=== PATIENT | male | born 1945 | race African-American/Black ===

== ENCOUNTER → 2016-12-26 | Outpatient (CLI) | payer MEDICARE, BC ==
--- NOTE | 2016-12-26 15:48 | RAD ---
Radionuclide bone scan, 12/26/2016: History: Prostate cancer, yearly checkup Whole-body imaging was performed following IV injection of 25 mCi of technetium 99m MDP. No previous studies are available at this time for comparison purposes. The following findings are delineated: 1. There is moderately increased activity at the left hip joint as well as mildly increased activity at the right hip joint. The findings are likely on an arthritic basis. Correlation with radiographic findings is suggested. 2. Moderately increased activity is present medially at both knees, right greater than left, as well as at both sternoclavicular and acromioclavicular levels. The findings are compatible with arthritis. 3. Mildly increased activity at the left first MTP level and at the right hindfoot level is likely arthritic in nature. 4. A small focus of increased activity is seen in the mid to upper cervical region on the posterior image. This is a nonspecific finding, but likely on an arthritic basis. Correlation with radiographic findings may be helpful. 5. Activity of the radionuclide about the skeleton major joints is otherwise symmetric. IMPRESSION: Scattered abnormalities as described above are most likely arthritic in nature. There is no convincing evidence of osseous metastatic disease.
== END | disposition home or self-care (01) ==
LOC: NM 09:42
PROVIDERS: ATTEND Urology
DX: C61 Malignant neoplasm of prostate (principal); I10 Essential (primary) hypertension
CPT/HCPCS: 78306; 96374; A9503

== ENCOUNTER → 2018-07-23 | Outpatient (CLI) | payer MEDICARE ==
[2018-07-23 14:36] LABS: ALBUMIN 3.7 g/dL (3.4-5.0); ALBUMIN/GLOBULIN RATIO 0.8 (1.0-1.7); CALCIUM 9.7 mg/dL (8.5-10.1); GFR 39.7; POTASSIUM 4.9 mmol/L (3.5-5.1); TOTAL BILIRUBIN 0.6 mg/dL (0.2-1.0); TOTAL PROTEIN 8.1 g/dL (6.4-8.2)
== END | disposition home or self-care (01) ==
LOC: LAB 13:25
DX: C61 Malignant neoplasm of prostate (principal)
CPT/HCPCS: 36415; 80053

== ENCOUNTER 2019-05-25 19:36 | Inpatient (IN) | payer MEDICARE ==
[~2019-05-25] VITALS: Ht 170.2 cm; Wt 72.4 kg
[2019-05-25 19:00] VITALS: BP 123/73
[2019-05-25 21:38] LABS: BASO % 0 % (0-3); EOS # 0.1 x10^3/uL (0.0-0.7); EOS % 1 % (0-3); HEMATOCRIT 20.9 % (39.0-53.0); LYMPH # 1.8 x10^3/uL (1.0-4.8); LYMPH % 20 % (24-48); MEAN CORPUSCULAR HEMOGLOBIN 28 pg (25-35); MEAN CORPUSCULAR HGB CONC 33 g/dL (31-37); MEAN CORPUSCULAR VOLUME 85 fL (79-100); MONO % 11 % (0-9); NEUT # 6.1 x10^3uL (1.8-7.7); NEUT % 68 % (31-73); PLATELET COUNT 334 x10^3/uL (140-400); RED BLOOD COUNT 2.47 x10^6/uL (4.30-5.70); RED CELL DISTRIBUTION WIDTH 17.1 % (11.5-14.5); WHITE BLOOD COUNT 9.1 x10^3/uL (4.0-11.0)
[2019-05-25] MEDS: IV NORMAL SALINE 1,000ML 1,000 ML IV SCH (21:38)
[2019-05-25 21:47] LABS: ALBUMIN 1.9 g/dL (3.4-5.0); ALBUMIN/GLOBULIN RATIO 0.3 (1.0-1.7); CALCIUM 8.4 mg/dL (8.5-10.1); CREATININE 1.2 mg/dL (0.7-1.3); GFR 71.4; POTASSIUM 4.3 mmol/L (3.5-5.1); TOTAL BILIRUBIN 0.1 mg/dL (0.2-1.0); TOTAL PROTEIN 7.4 g/dL (6.4-8.2)
[2019-05-25 22:07] LABS: HEMOGLOBIN 6.9 g/dL (13.0-17.5)
[2019-05-25 23:04] LABS: BACTERIA,URINE MOD /HPF (0-FEW); BILIRUBIN,URINE NEG (NEG); CLARITY,URINE CLOUDY; COLOR,URINE AMBER; GLUCOSE,URINE NEG (NEG); NITRITE,URINE POS (NEG); RBC,URINE TNTC /HPF (0-2); SQUAMOUS EPITHELIAL CELL,UR OCC /LPF; UROBILINOGEN,URINE 0.2 mg/dL (0.2 mg/dL); WBC,URINE TNTC /HPF (0-4)
[2019-05-26] VITALS (11 sets, daily range): BP systolic 112–148; BP diastolic 60–80
[2019-05-26] MEDS ORDERED: ACETAMINOPHEN 325 MG TABLET PO ONE (00:26)
[2019-05-26] MEDS ORDERED: ACETAMINOPHEN 325 MG TABLET PO PRN ×2 (00:30→00:45)
[2019-05-26] MEDS ORDERED: ZINC220C5 PO (05:12)
[2019-05-26] MEDS ORDERED: ACET500T68 PO (05:12)
[2019-05-26] MEDS ORDERED: POLY17PO5 PO (05:12)
[2019-05-26] MEDS ORDERED: BISM262O17 PO (05:12)
[2019-05-26] MEDS ORDERED: OMEP20CA10 PO (05:12)
[2019-05-26] MEDS ORDERED: OXYC5TAB4 PO (05:12)
[2019-05-26] MEDS ORDERED: LATA2.5D3 EACHEYE (05:12)
[2019-05-26] MEDS ORDERED: PHEN1SUP75 RC (05:22)
[2019-05-26] MEDS ORDERED: MULT1TAB52 PO (05:22)
[2019-05-26] MEDS ORDERED: 0.92DISP2 IR (05:22)
[2019-05-26] MEDS: IV NORMAL SALINE 1,000ML 1,000 ML IV SCH ×3 (05:58→20:46)
[2019-05-26 06:20] LABS: BASO # 0.1 x10^3/uL (0.0-0.2); BASO % 1 % (0-3); EOS # 0.2 x10^3/uL (0.0-0.7); EOS % 2 % (0-3); HEMATOCRIT 21.9 % (39.0-53.0); HEMOGLOBIN 7.2 g/dL (13.0-17.5); LYMPH # 1.6 x10^3/uL (1.0-4.8); LYMPH % 20 % (24-48); MEAN CORPUSCULAR HEMOGLOBIN 28 pg (25-35); MEAN CORPUSCULAR HGB CONC 33 g/dL (31-37); MEAN CORPUSCULAR VOLUME 86 fL (79-100); MONO # 1.1 x10^3/uL (0.0-1.1); MONO % 14 % (0-9); NEUT # 4.9 x10^3uL (1.8-7.7); NEUT % 63 % (31-73); PLATELET COUNT 314 x10^3/uL (140-400); RED BLOOD COUNT 2.56 x10^6/uL (4.30-5.70); RED CELL DISTRIBUTION WIDTH 17.2 % (11.5-14.5); WHITE BLOOD COUNT 7.8 x10^3/uL (4.0-11.0)
[2019-05-26 06:24] LABS: ALBUMIN 1.7 g/dL (3.4-5.0); ALBUMIN/GLOBULIN RATIO 0.3 (1.0-1.7); CALCIUM 8.2 mg/dL (8.5-10.1); CREATININE 1.2 mg/dL (0.7-1.3); GFR 71.4; POTASSIUM 4.2 mmol/L (3.5-5.1); TOTAL BILIRUBIN 0.1 mg/dL (0.2-1.0); TOTAL PROTEIN 6.9 g/dL (6.4-8.2)
[2019-05-26] MEDS: 0.9 % SODIUM CHLORIDE 10 ML DISP.SYRIN. INT CAT SCH ×2 (10:45→20:47)
[2019-05-26] MEDS: MULTIVITAMIN with MINERAL TABLET. PO SCH (11:00)
[2019-05-26] MEDS: PANTOPRAZOLE 40 MG TABLET. PO SCH (11:57)
[2019-05-26] MEDS ORDERED: ACETAMINOPHEN 500 MG TABLET PO SCH (12:00)
[2019-05-26] MEDS ORDERED: POLYETHYLENE GLYCOL 3350 17 GM PACKET. PO SCH (13:00)
[2019-05-26] MEDS ORDERED: LIDO76.53 TP (14:49)
[2019-05-26] MEDS ORDERED: POLYETHYLENE GLYCOL 3350 17 GM PACKET. PO PRN (15:00)
--- NOTE | 2019-05-26 18:41 | HP ---
ADMIT DATE: HISTORY OF PRESENT ILLNESS: The patient is a 73-year-old male patient, resident at [facility], who was admitted directly as his hemoglobin was only 6.3 g/dL. When he arrived here, it transpired that he was febrile and his urinalysis showed that he was positive for nitrite and leukocyte esterase and he has too numerous to count wbc's and therefore, we did send urine and blood for culture and sensitivity and start him on IV Rocephin. We did also type and cross; however, we could not transfuse him the blood initially because he was febrile and was admitted for inpatient treatment, to continue with IV antibiotic and to transfuse him and monitor his H and H. PAST MEDICAL HISTORY: Significant for severe protein-calorie malnutrition, has GI bleeding, chronic constipation, partial small-bowel obstruction, sepsis, pyelonephritis, ureteral obstruction and hydronephrosis, acute kidney injury, visual impairment. Has also prostate cancer, left hip pain, hot flashes, hypertension, osteoarthritis, syncope and hard of hearing. PAST SURGICAL HISTORY: Significant for the sigmoidoscopy with decompression and biopsy, exploratory laparotomy with loop ileostomy. He underwent bilateral nephrostomy tube placement for bilateral hydronephrosis. He has also had an inferior vena cava filter placed after he was found to have bilateral deep vein thrombosis as he was not a candidate for anticoagulation. ALLERGIES: He is allergic to ZOSYN. MEDICATIONS: He is on oxycodone 5 mg every 4 hours as needed, acetaminophen 500 mg every 4 hours. He has normal saline flushes to both nephrostomy tube twice a day, zinc sulfate ____ mg daily; latanoprost 1 drop to both eyes at bedtime. He is on bismuth subsalicylate 262 mg p.o. q. 6 hourly, polyethylene glycol 17 grams 4 times a day as needed, omeprazole 20 mg once a day, lidocaine/menthol for Icy Hot 4% cream applied topically for pain as needed. He is on phenylephrine/Macon butter suppositories rectally daily and multivitamin 1000 once a day. FAMILY HISTORY: Positive for rheumatoid arthritis, bronchial asthma, and malignant hyperthermia in his mother. SOCIAL HISTORY: He is , lives with his . He has 1 daughter. He never smoked, does not drink alcohol or use any recreational drugs. He is retired from [employer]. REVIEW OF SYSTEMS: The patient denied any blurring of vision, cataract, glaucoma or macular degeneration. Denied any earache, tinnitus or sensorineural deafness. Denied any nosebleeds, stuffy nose or postnasal drip. Denied any sore throat, sore tongue, toothache, hoarseness of voice or difficulty swallowing. Denied any nausea, vomiting, diarrhea or constipation. Denied any hematemesis, melena or hematochezia. Denied any dysuria, frequency, but did have hematuria as he continued to make some urine and urinate through his natural urethra. Denied any chest pain, shortness of breath, orthopnea or paroxysmal nocturnal dyspnea. Denied any cough, phlegm or hemoptysis. Denied any chills, rigors or fever. PHYSICAL EXAMINATION: GENERAL: On arrival to the hospital, he was extremely pale, but no jaundice, cyanosis or thyromegaly. No jugular venous distention. No lower limb edema. VITAL SIGNS: Her heart rate was 102, blood pressure was 123/73, temperature was 99.1, respiratory rate was 18 and oxygen saturation was 98%. HEAD, EYES, EARS, NOSE AND THROAT: Showed normocephalic, atraumatic. NECK: Supple. HEART: Showed normal first and second heart sounds. No gallop, rub or murmur. CHEST: Clear to auscultation. No crepitation or rhonchi. ABDOMEN: Distended, soft, nontender with a loop ileostomy in the left lower quadrant. There is no guarding or rigidity. No organomegaly. All hernial orifices intact. Bowel sounds normal. He has bilateral percutaneous nephrostomy tube. NEUROLOGIC: He is awake, alert, responding appropriately. All cranial nerves intact. He moves extremities without difficulty. He ambulates with a walker. LABORATORY DATA: On arrival showed a white cell count of 9,100, hemoglobin ____, hematocrit 20.9, MCV was 85 and platelet count 334,000 with normal manual differential. His chemistry showed serum sodium 133, potassium 4.3, chloride 99, bicarbonate 27, anion gap of 7, BUN 12, creatinine 1.2, estimated GFR was 71 mL per minute. His glucose 106, calcium was 8.4. Total bilirubin, AST, ALT, alkaline phosphatase were normal. Total protein was 7.4, albumin was 1.9. Urinalysis showed the urine was cloudy with a pH of 6, specific gravity of 1.015, there was large amount of protein. The urine was negative for glucose, ketones and large amount of blood; positive for nitrite, large amount of leukocyte esterase, too numerous to count rbc's, too numerous to count wbc's, moderate amount of bacteria. His nasal screen for MRSA by PCR was positive. ASSESSMENT AND PLAN: In summary, this is a 73-year-old who was admitted with acute blood loss anemia, most likely in the form of hematuria. He has also history of GI bleeding, but there is no documented history of hematemesis, melena or hematochezia. We will type and cross and transfuse him 1 unit. We will send urine and blood for culture and sensitivity, start him on IV ceftriaxone, continue with all his other medications. We will monitor his H and H and transfuse him as needed, continue with IV antibiotic and adjust the antibiotics according to the result of the urine and blood culture and sensitivity. GUALBERTO MCGRATH MD DR: NICKI/vanessa JOB#: [id number] / [id number]
[2019-05-26] MEDS: LACTOBACILLUS RHAMNOSUS GG 1 CAPSULE. PO SCH (20:47)
[2019-05-26] MEDS: LATANOPROST 0.005% OPHTH SOLUTION 2.5ML BOTTLE. OU SCH (20:49)
[2019-05-26] MEDS: ACETAMINOPHEN 500 MG TABLET PO PRN (20:49)
[2019-05-27] VITALS (7 sets, daily range): BP systolic 112–141; BP diastolic 69–83
[2019-05-27] MEDS: IV NORMAL SALINE 1,000ML 1,000 ML IV SCH ×2 (04:26→12:15)
--- NOTE | 2019-05-27 05:16 | PN ---
DATE: SUBJECTIVE: The patient is resting flat comfortably in bed, in no apparent distress. He is awake, alert. Denied any complaint. He did receive 1 unit of packed RBCs and he is afebrile this morning. PHYSICAL EXAMINATION: GENERAL: When I saw him, he looked pale; no jaundice, cyanosis or thyromegaly. No jugular venous distention. No limb edema. VITAL SIGNS: His heart rate was 84, blood pressure was 123/71, temperature was 98.9, respiratory rate was 17 and oxygen saturation was 97%. HEAD, EYES, EARS, NOSE AND THROAT: Showed normocephalic, atraumatic. NECK: Supple. HEART: Showed normal first and second heart sounds with no gallop or murmur. CHEST: Clear to auscultation. No crepitation or rhonchi. ABDOMEN: Distended, soft, nontender with an ileostomy in the left lower quadrant. There is no guarding, rigidity or organomegaly. All hernial orifices were intact. Bowel sounds normal. He has bilateral percutaneous nephrostomy tubes. NEUROLOGIC: He is awake, alert, responding appropriately. All cranial nerves intact. He moves extremities without difficulty. He ambulates with a walker. His intake was 1200, output was 975. LABORATORY DATA: His lab work this morning showed that his white cell count was 7800, hemoglobin 7.2, hematocrit 21.9, MCV 86 and platelet count 314,000 with normal manual differential. His chemistry showed a serum sodium 136, potassium 4.2, chloride 103, bicarbonate 26, anion gap of 7, BUN 9, creatinine 1.2, estimated GFR was 71 mL per minute. His glucose was 94, calcium was 8.2. Total bilirubin, AST, ALT were normal. Alkaline phosphatase slightly elevated. Total protein was 6.9, albumin was 1.7. ASSESSMENT: 1. Acute blood loss anemia, most likely due to hematuria for which he received 1 unit of packed RBCs. 2. Urinary tract infection for which he is on IV Rocephin. He has prostate cancer with bilateral hydronephrosis requiring bilateral percutaneous nephrostomy tube placement. 3. He has multiple other medical problems including chronic constipation, hypertension, osteoarthritis and sensorineural deafness. PLAN: To continue to monitor his H and H and transfuse him as needed. Continue with IV antibiotic. Continue with physical and occupational therapy. Once we have the result of the urine culture and sensitivity, his antibiotics can be switched to oral route and he can be transferred back to [facility] to continue with the process of rehabilitation. GUALBERTO MCGRATH MD DR: NICKI/vanessa JOB#: [id number] / [id number]
[2019-05-27 06:08] LABS: HEMATOCRIT 23.6 % (39.0-53.0); HEMOGLOBIN 7.8 g/dL (13.0-17.5); RED BLOOD COUNT 2.74 x10^6/uL (4.30-5.70); RED CELL DISTRIBUTION WIDTH 16.8 % (11.5-14.5); WHITE BLOOD COUNT 6.9 x10^3/uL (4.0-11.0)
[2019-05-27 06:21] LABS: ALBUMIN 1.6 g/dL (3.4-5.0); ALBUMIN/GLOBULIN RATIO 0.4 (1.0-1.7); CALCIUM 7.7 mg/dL (8.5-10.1); CREATININE 1.1 mg/dL (0.7-1.3); TOTAL BILIRUBIN 0.1 mg/dL (0.2-1.0)
[2019-05-27] MEDS: MULTIVITAMIN with MINERAL TABLET. PO SCH (08:11)
[2019-05-27] MEDS: LACTOBACILLUS RHAMNOSUS GG 1 CAPSULE. PO SCH ×2 (08:11→21:01)
[2019-05-27] MEDS: ACETAMINOPHEN 500 MG TABLET PO PRN ×2 (08:11→21:01)
[2019-05-27] MEDS: ZINC SULFATE 220 MG CAPSULE. PO SCH (08:11)
[2019-05-27] MEDS: PANTOPRAZOLE 40 MG TABLET. PO SCH (08:11)
[2019-05-27] MEDS: 0.9 % SODIUM CHLORIDE 10 ML DISP.SYRIN. INT CAT SCH ×2 (08:12→21:02)
[2019-05-27] MEDS: LATANOPROST 0.005% OPHTH SOLUTION 2.5ML BOTTLE. OU SCH (21:02)
[2019-05-27] MEDS: oxyCODONE IR 5 MG TABLET PO PRN (23:01)
--- NOTE | 2019-05-28 00:39 | PN ---
DATE: 05/27/2019 SUBJECTIVE: The patient is here for blood transfusion, recent surgeries, ostomy tubes and a colostomy. No new complaints. He is comfortable. He denied any pain, shortness of breath or nausea. OBJECTIVE FINDINGS: VITAL SIGNS: The patient's blood pressure today is 117/73, pulse is 83 and regular, respirations are unlabored. He is afebrile. He has adequate saturation on room air. HEENT: Head is without trauma. Pupils are reactive. Sclerae are nonicteric. The oropharynx is clear. NECK: Supple, no bruits. LUNGS: Otherwise clear. CARDIOVASCULAR: Showed regular heart tones. No obvious gallops. Peripheral pulses palpable and full. ABDOMEN: Soft, scaphoid, nontender. Midline incision is well healed. There is a functioning ostomy in the left lower quadrant. The stoma is pink and viable. There is no guarding or rebound tenderness. Bilateral nephrostomy tubes with clear urine emanating from both flanks. LABORATORY STUDY: Hemoglobin dropped to 7.8 g/dL with a white count of 6900. ASSESSMENT: 1. Acute blood loss anemia, replace. 2. Urinary tract infection due to chronically indwelling catheter, on Rocephin. 3. Obstructive uropathy with bilateral percutaneous nephrostomy tube placement. 4. Recent colostomy formation. 5. Anemia due to blood loss. PLAN: 1. Monitor blood counts. 2. Diet as tolerated. 3. Continue Rocephin as ordered. 4. Discontinue IV fluids. 5. Tentative plans for discharge back to assisted living facility in the morning. JASON ORTIZ MD DR: TRENT/vanessa JOB#: [id number] / [id number]
[2019-05-28 06:40] VITALS: BP 142/85
[2019-05-28] MEDS: PANTOPRAZOLE 40 MG TABLET. PO SCH (07:29)
[2019-05-28] MEDS: ZINC SULFATE 220 MG CAPSULE. PO SCH (08:45)
[2019-05-28] MEDS: LACTOBACILLUS RHAMNOSUS GG 1 CAPSULE. PO SCH ×2 (08:45→20:01)
[2019-05-28] MEDS: MULTIVITAMIN with MINERAL TABLET. PO SCH (08:45)
[2019-05-28] MEDS: 0.9 % SODIUM CHLORIDE 10 ML DISP.SYRIN. INT CAT SCH ×2 (08:45→20:02)
[2019-05-28 10:36] VITALS: BP 143/84
[2019-05-28 15:22] VITALS: BP 130/73
[2019-05-28 19:15] VITALS: BP 135/84
[2019-05-28] MEDS: oxyCODONE IR 5 MG TABLET PO PRN (19:45)
[2019-05-28] MEDS: LATANOPROST 0.005% OPHTH SOLUTION 2.5ML BOTTLE. OU SCH (20:01)
--- NOTE | 2019-05-28 23:24 | DS ---
DATE OF DISCHARGE: 05/28/2019 ATTENDING PHYSICIAN: Dr. Benoit. FINAL DISCHARGE DIAGNOSES: 1. Symptomatic anemia, transfuse. 2. Protein-calorie malnutrition. 3. Hematuria. 4. Small-bowel obstruction. 5. Pyelonephritis. 6. Ureteral obstruction with hydronephrosis. 7. Bilateral percutaneous nephrostomy tubes. 8. Prostate cancer. 9. Essential hypertension. 10. Recent exploratory laparotomy and loop ileostomy. 11. History of bilateral deep vein thrombosis with placement of an inferior vena cava filter. HISTORY AND PHYSICAL: This pleasant 73-year-old gentleman is a resident of [facility], admitted with symptomatic anemia with hemoglobin 6.3 g. He also had a low-grade fever. He was initially treated for UTI. PHYSICAL EXAMINATION: Please see the dictated note. PERTINENT LABORATORY AND X-RAY STUDIES: Blood cultures were negative at 48 hours. Urine cultures did not grow any significant pathogens. Laboratory studies showed hemoglobin 6.3 g, repeated was up to 7.8 g/dL, white count was 6900. Chemistry showed a creatinine of 1.1 mg/dL, potassium 4.0 mEq. COURSE IN HOSPITAL: The patient was admitted. He was started on empiric antibiotics. Cultures were drawn that were negative. Antibiotics were stopped after 2 days. He did well. He received a couple of units of blood for transfusion, increasing his hemoglobin up to 7.8 g/dL. His ileostomy was working and the nephrostomy tubes were draining adequately. On the third hospital day, his vital signs were quite stable. The lungs were clear. He was afebrile with a blood pressure of 140/80, pulse and respirations were normal. He was eating adequately. His ostomies were functioning. He was discharged then back to his assisted living facility. He will continue his home drops including Tylenol, Pepto-Bismol, Latanoprost eyedrops, Icy Hot, multivitamin, omeprazole, Preparation-H p.r.n., MiraLax and zinc sulfate. His prognosis is guarded. He was discharged then from our hospital in stable condition with explicit instructions and followup care. Total discharge time spent 39 minutes. JASON ORTIZ MD DR: TRENT/vanessa JOB#: [id number] / [id number] GUALBERTO Christine MD
[2019-05-29 06:07] VITALS: BP 126/81
[2019-05-29] MEDS: 0.9 % SODIUM CHLORIDE 10 ML DISP.SYRIN. INT CAT SCH ×2 (09:00→20:57)
[2019-05-29 10:44] VITALS: BP 119/71
[2019-05-29 15:14] VITALS: BP 134/79
[2019-05-29] MEDS: PANTOPRAZOLE 40 MG TABLET. PO SCH (16:18)
[2019-05-29] MEDS: LACTOBACILLUS RHAMNOSUS GG 1 CAPSULE. PO SCH ×2 (16:18→20:56)
[2019-05-29] MEDS: ZINC SULFATE 220 MG CAPSULE. PO SCH (16:18)
[2019-05-29] MEDS: MULTIVITAMIN with MINERAL TABLET. PO SCH (16:18)
[2019-05-29 20:06] VITALS: BP 127/73
[2019-05-29] MEDS: LATANOPROST 0.005% OPHTH SOLUTION 2.5ML BOTTLE. OU SCH (20:56)
[2019-05-29] MEDS: oxyCODONE IR 5 MG TABLET PO PRN (21:17)
[2019-05-29 22:41] VITALS: BP 126/74
[2019-05-30 05:59] VITALS: BP 145/78
[2019-05-30] MEDS: MULTIVITAMIN with MINERAL TABLET. PO SCH (08:54)
[2019-05-30] MEDS: LACTOBACILLUS RHAMNOSUS GG 1 CAPSULE. PO SCH ×2 (08:54→21:18)
[2019-05-30] MEDS: PANTOPRAZOLE 40 MG TABLET. PO SCH (08:54)
[2019-05-30] MEDS: ZINC SULFATE 220 MG CAPSULE. PO SCH (08:54)
[2019-05-30] MEDS: 0.9 % SODIUM CHLORIDE 10 ML DISP.SYRIN. INT CAT SCH ×2 (08:55→21:18)
[2019-05-30 10:30] VITALS: BP 129/77
[2019-05-30] MEDS ORDERED: ATENOLOL 50 MG TABLET ONE (10:39)
[2019-05-30 10:40] VITALS: BP 129/77
[2019-05-30] MEDS ORDERED: ATENOLOL 50 MG TABLET PO ONE (11:00)
[2019-05-30 14:29] VITALS: BP 118/71
[2019-05-30 19:59] VITALS: BP 119/69
[2019-05-30] MEDS: CEFDINIR 300 MG CAPSULE PO SCH (21:18)
[2019-05-30] MEDS: oxyCODONE IR 5 MG TABLET PO PRN (21:21)
[2019-05-30] MEDS: LATANOPROST 0.005% OPHTH SOLUTION 2.5ML BOTTLE. OU SCH (21:21)
--- NOTE | 2019-05-30 22:29 | PN ---
DATE: 05/30/2019 CHIEF COMPLAINT: Weakness. SUBJECTIVE: The patient is a 73-year-old gentleman who was actually discharged from the hospital this past Friday, 48 hours ago, the issues over the long holiday weekend, there were problems with the longterm getting transportation. We have been on the phone for 2 days now and were still in the process of getting them to accept the patient back for care. He was hospitalized here for 2 days for blood transfusion. He has had a recent ostomy along with bilateral nephrostomy tubes. Subjectively, he is doing well without any complaints. He is a bit frustrated too. The reason I am doing this note is because I have been checking on him. We found asymptomatic tachycardia with a heart rate of 148 per minute. It appears to be a sinus tachycardia. OBJECTIVE: VITAL SIGNS: Blood pressure is 129/77, pulse ranges between 130 and 140. It appears to be sinus in nature. LUNGS: Clear. CARDIOVASCULAR: Showed a tachycardic rhythm. No obvious gallops. Peripheral pulses are palpable, but thready. ABDOMEN: Soft. Ostomy tubes are functioning with clear urine drainage. He does not appear Warm or toxic. LABORATORY DATA: Reviewed on , his hemoglobin dropped to 7.8 g/dL with creatinine 1.1 mg/dL. ASSESSMENT: 1. Asymptomatic tachycardia. 2. Anemia of chronic disease, transfused. 3. Obstructive uropathy. 4. Recent ileostomy. PLAN: 1. We are still working on trying to get him back to his nursing care facility. 2. Empiric Tenormin 50 mg p.o. now with monitoring of his heart rate. He may need higher doses later. We will see how he does. He is asymptomatic at this point. JASON ORTIZ MD DR: TRENT/vanessa JOB#: [id number] / [id number]
[2019-05-30 22:51] VITALS: BP 122/67
[2019-05-31 06:23] VITALS: BP 128/74
[2019-05-31] MEDS: CEFDINIR 300 MG CAPSULE PO SCH ×2 (08:56→22:12)
[2019-05-31] MEDS: oxyCODONE IR 5 MG TABLET PO PRN ×2 (08:56→22:12)
[2019-05-31] MEDS: LACTOBACILLUS RHAMNOSUS GG 1 CAPSULE. PO SCH ×2 (08:56→22:12)
[2019-05-31] MEDS: PANTOPRAZOLE 40 MG TABLET. PO SCH (08:56)
[2019-05-31] MEDS: MULTIVITAMIN with MINERAL TABLET. PO SCH (08:56)
[2019-05-31] MEDS: ZINC SULFATE 220 MG CAPSULE. PO SCH (08:57)
[2019-05-31] MEDS: 0.9 % SODIUM CHLORIDE 10 ML DISP.SYRIN. INT CAT SCH ×2 (08:59→22:12)
[2019-05-31 10:51] VITALS: BP 122/68
[2019-05-31 14:52] VITALS: BP 108/62
[2019-05-31 19:37] VITALS: BP 108/58
[2019-05-31] MEDS: LATANOPROST 0.005% OPHTH SOLUTION 2.5ML BOTTLE. OU SCH (21:00)
[2019-06-01 06:00] VITALS: BP 122/76
[2019-06-01] MEDS: PANTOPRAZOLE 40 MG TABLET. PO SCH (09:02)
[2019-06-01 11:19] VITALS: BP 112/69
[2019-06-01 11:44] LABS: HEMATOCRIT 23.2 % (39.0-53.0); HEMOGLOBIN 7.5 g/dL (13.0-17.5); RED BLOOD COUNT 2.66 x10^6/uL (4.30-5.70)
[2019-06-01 11:52] LABS: CALCIUM 8.2 mg/dL (8.5-10.1); CREATININE 1.1 mg/dL (0.7-1.3); POTASSIUM 3.9 mmol/L (3.5-5.1)
[2019-06-01] MEDS: MULTIVITAMIN with MINERAL TABLET. PO SCH (11:57)
[2019-06-01] MEDS: CEFDINIR 300 MG CAPSULE PO SCH ×2 (11:57→20:46)
[2019-06-01] MEDS: LACTOBACILLUS RHAMNOSUS GG 1 CAPSULE. PO SCH ×2 (11:57→20:47)
[2019-06-01] MEDS: ZINC SULFATE 220 MG CAPSULE. PO SCH (11:57)
[2019-06-01] MEDS: 0.9 % SODIUM CHLORIDE 10 ML DISP.SYRIN. INT CAT SCH ×2 (11:58→20:47)
[2019-06-01 15:53] VITALS: BP 125/67
[2019-06-01] MEDS: oxyCODONE IR 5 MG TABLET PO PRN (16:24)
[2019-06-01 19:22] VITALS: BP 111/66
[2019-06-01] MEDS: ACETAMINOPHEN 500 MG TABLET PO PRN (20:46)
[2019-06-01] MEDS: diphenhydrAMINE HCL 25 MG CAPSULE PO PRN (20:46)
[2019-06-01] MEDS: LATANOPROST 0.005% OPHTH SOLUTION 2.5ML BOTTLE. OU SCH (20:47)
--- NOTE | 2019-06-01 22:07 | PN ---
DATE: 06/01/2019 SUBJECTIVE: The patient is resting, slightly propped up in bed, in no apparent respiratory distress. He is awake, alert. On questioning him, he denied any complaint except that he continued to have some blood-tinged urine from his urethra. The urine from bilateral nephrostomy tube is clear. No evidence of blood in it. He denied any other complaints. PHYSICAL EXAMINATION: GENERAL: When I examined him, he looked somewhat pale. No jaundice, cyanosis or thyromegaly. No jugular venous distention. No limb edema. VITAL SIGNS: Her heart rate was 109, blood pressure was 122/76, temperature was 98.6, respiratory rate was 18 and oxygen saturation was 95%. HEAD, EYES, EARS, NOSE AND THROAT: Showed normocephalic, atraumatic. NECK: Supple. HEART: Showed normal first and second heart sounds with no gallop, rub or murmur. CHEST: Clear to auscultation. No crepitation or rhonchi. ABDOMEN: Distended, soft with an ileostomy bag in the left lower quadrant, has bilateral percutaneous nephrostomy tube in place. There is no tenderness. No guarding or rigidity. No organomegaly. All hernial orifice intact. Bowel sounds normal. NEUROLOGIC: He is awake, alert, responding appropriately. All cranial nerves are intact. He moves extremities without difficulty, although he is mostly bedbound, chair bound. He does walk with a walker for short distances. His intake was 1400, output was 1550. LABORATORY DATA: Most recent lab work showed a white cell count of 6900, hemoglobin 7.8, hematocrit 23.6, MCV 86 and platelet count 312,000. His most recent chemistry showed a serum sodium 137, potassium 4, chloride 105, bicarbonate 24, anion gap of 8, BUN 10, creatinine 1.1, estimated GFR was 79 mL per minute. His glucose was 87, calcium was 7.7. Total bilirubin, AST, ALT normal. Alkaline phosphatase slightly elevated. Total protein was 6, albumin was 1.6. His urine culture has grown more than 100,000 colony forming units per mL of Klebsiella pneumoniae susceptible to cephalosporin. His blood cultures showed no growth after 5 days. ASSESSMENT: Anemia of chronic disease, transfused; obstructive uropathy, recent ileostomy for bilateral percutaneous nephrostomy tube. PLAN: My plan is to arrange for him to have a STAT lab work. Meanwhile, continue with cefdinir and all other medications. GUALBERTO MCGRATH MD DR: NICKI/vanessa JOB#: [id number] / [id number]
[2019-06-01 22:46] VITALS: BP 119/71
[2019-06-02 05:38] VITALS: BP 132/80
[2019-06-02] MEDS: LACTOBACILLUS RHAMNOSUS GG 1 CAPSULE. PO SCH ×2 (08:33→20:39)
[2019-06-02] MEDS: PANTOPRAZOLE 40 MG TABLET. PO SCH (08:34)
[2019-06-02] MEDS: CEFDINIR 300 MG CAPSULE PO SCH ×2 (08:34→20:39)
[2019-06-02] MEDS: MULTIVITAMIN with MINERAL TABLET. PO SCH (08:34)
[2019-06-02] MEDS: oxyCODONE IR 5 MG TABLET PO PRN ×2 (08:34→20:39)
[2019-06-02] MEDS: 0.9 % SODIUM CHLORIDE 10 ML DISP.SYRIN. INT CAT SCH ×2 (08:34→20:40)
[2019-06-02] MEDS: ZINC SULFATE 220 MG CAPSULE. PO SCH (08:34)
[2019-06-02 10:51] VITALS: BP 122/73
[2019-06-02 14:48] VITALS: BP 122/73
[2019-06-02 18:35] VITALS: BP 118/74
[2019-06-02] MEDS: LATANOPROST 0.005% OPHTH SOLUTION 2.5ML BOTTLE. OU SCH (20:39)
--- NOTE | 2019-06-03 01:36 | PN ---
DATE: 06/02/2019 SUBJECTIVE: The patient is resting, slightly propped up in bed, in no apparent respiratory distress. Continues to be weak and deconditioned, some pain in his right knee joint. He is unable to walk and still continues to be with marked muscle wasting and weakness. He does some exercises while in the bed. PHYSICAL EXAMINATION: GENERAL: When I examined him this afternoon, he was pale. No jaundice, cyanosis, or thyromegaly, jugular venous distension. No limb edema. VITAL SIGNS: His heart rate was 88, blood pressure was 122/73, temperature was 98.1, respiratory rate 20, and oxygen saturation was 96%. HEAD, EYES, EARS, NOSE AND THROAT: Showed normocephalic, atraumatic. NECK: Supple. HEART: Showed normal first and second heart sounds with no gallop, rub or murmur. CHEST: Clear to auscultation. No crepitation or rhonchi. ABDOMEN: Distended, soft, nontender. No guarding or rigidity. No organomegaly. All hernial orifices intact. Bowel sounds normal. NEUROLOGIC: He is awake, alert, responding appropriately. All cranial nerves are intact. He moves extremities without difficulty. He has marked muscle wasting and weakness. He has bilateral percutaneous nephrostomy tube. His intake over the last 24 hours was 1040, output was 1325. LABORATORY DATA: This morning showed a serum sodium 134, potassium 3.9, chloride 101, bicarbonate 24, anion gap of 8, BUN 10, creatinine 1.1, estimated GFR was 79 mL per minute. Glucose 106, calcium was 8.2. His white cell count was 8000, hemoglobin 7.5, hematocrit 23, MCV 87 and platelet count 292,000. ASSESSMENT: 1. Blood loss anemia, status post transfusion. 2. Obstructive uropathy, status post bilateral percutaneous nephrostomy tube. 3. Urinary tract infection. 4. Prostate cancer with bilateral hydronephrosis requiring bilateral percutaneous nephrostomy tube. 5. Has multiple other medical problems including chronic constipation, hypertension, osteoarthritis, sensorineural deafness. 6. Severe debility and deconditioning with marked muscle wasting and difficulty walking. GUALBERTO MCGRATH MD DR: NICKI/vanessa JOB#: [id number] / [id number]
[2019-06-03] MEDS: diphenhydrAMINE HCL 25 MG CAPSULE PO PRN (04:03)
[2019-06-03 05:56] VITALS: BP 131/80
[2019-06-03] MEDS: PANTOPRAZOLE 40 MG TABLET. PO SCH (07:27)
[2019-06-03] MEDS: 0.9 % SODIUM CHLORIDE 10 ML DISP.SYRIN. INT CAT SCH (08:56)
[2019-06-03] MEDS: CEFDINIR 300 MG CAPSULE PO SCH (09:02)
[2019-06-03] MEDS: MULTIVITAMIN with MINERAL TABLET. PO SCH (09:02)
[2019-06-03] MEDS: ZINC SULFATE 220 MG CAPSULE. PO SCH (09:02)
[2019-06-03] MEDS: LACTOBACILLUS RHAMNOSUS GG 1 CAPSULE. PO SCH (09:02)
[2019-06-03 10:46] VITALS: BP 116/71
[2019-06-03] MEDS ORDERED: ONDANSETRON ODT 4 MG TAB.RAPDIS PO ONE ×2 (13:30→14:00)
--- NOTE | 2019-06-03 20:42 | DS ---
DATE OF DISCHARGE: 06/03/2019 HOSPITAL COURSE: The patient is a 73-year-old male patient who was admitted initially on 05/26/2019 as a direct admission as he was anemic with hemoglobin 6.2 g/dL. He was also found to be febrile and his urinalysis showed that it was positive for nitrite, leukocyte esterase and too numerous to count wbc's and therefore we did send urine for culture and sensitivity, started him on IV Rocephin. He did type and cross and transfuse him 1 unit of blood. He was treated. His H and H remained stable. His urine culture has grown more than 100,000 colony forming units per mL of Klebsiella pneumoniae sensitive to ceftriaxone and he was switched to cefdinir. The patient continues to be extremely deconditioned, debilitated and weak and a decision was made to discharge him back to [facility] to continue the process of rehabilitation. PHYSICAL EXAMINATION: GENERAL: When I saw him today, he looked well and was clearly in no apparent respiratory distress, pale, but no jaundice, cyanosis or thyromegaly. No jugular venous distension. No limb edema. VITAL SIGNS: His heart rate was 87. His blood pressure was 116/71, temperature was 98.6, respiratory rate was 20 and oxygen saturation was 97%. HEAD, EYES, EARS, NOSE AND THROAT: Showed normocephalic, atraumatic. NECK: Supple. HEART: Showed normal first and second heart sounds with no gallop or murmur. CHEST: Clear to auscultation. No crepitation or rhonchi. ABDOMEN: Distended, soft, nontender. Has bilateral percutaneous nephrostomy tube. NEUROLOGIC: He is awake, alert, responding appropriately. All cranial nerves are intact. He moves extremities without difficulty, although he is mostly bed bound, His intake was 700, output was 850. LABORATORY DATA: Showed a white cell count of 8000, hemoglobin 7.5, hematocrit 23.2, MCV 87, platelet count 292,000. His chemistry showed serum sodium 134, potassium 3.9, chloride 101, bicarbonate 25, anion gap of 8, BUN 10, creatinine 1.1, estimated GFR was 79 mL per minute. Her glucose 106, calcium was 8.2. DISCHARGE MEDICATIONS: He was discharged back to [facility] to continue on cefdinir 300 mg twice a day for 5 more days, acetaminophen 500 mg every 4 hours, bismuth subsalicylate (Bismatrol) 262 mg every 6 hours, latanoprost 1 drop to both eyes at bedtime, lidocaine and menthol applied topically as needed, multivitamin 1 tablet once a day, omeprazole 20 mg once a day, Preparation H suppositories rectally daily as needed, polyethylene glycol 17 grams 4 times a day and zinc sulfate 220 mg daily. FINAL DISCHARGE DIAGNOSES: 1. Blood loss anemia, status post transfusion. 2. Obstructive uropathy, status post bilateral percutaneous nephrostomy tube. 3. Urinary tract infection growing Klebsiella pneumoniae. 4. Prostate cancer and bilateral hydronephrosis, requiring bilateral percutaneous nephrostomy tube. 5. His multiple other medical problems including: A. Chronic constipation. B. Hypertension. C. Osteoarthritis. D. Sensorineural deafness. 6. Severe debility and deconditioning with marked muscle wasting and difficulty walking. GUALBERTO MCGRATH MD DR: NICKI/vanessa JOB#: [id number] / [id number]
== END 2019-06-03 14:25 | disposition home or self-care (01) | DRG 689 ==
LOC: ICU 19:36 → 1 SOUTH 05-28 06:15
PROVIDERS: ADMIT Internal Medicine; ATTEND Internal Medicine
PROC: 30233N1 Transfusion of Nonautologous Red Blood Cells into Peripheral Vein, Percutaneous Approach (ICD-10-PCS; principal; 2019-05-28)
DX: N13.6 Pyonephrosis (principal); E43 Unspecified severe protein-calorie malnutrition; D62 Acute posthemorrhagic anemia; K56.609 Unspecified intestinal obstruction, unspecified as to partial versus complete obstruction; I10 Essential (primary) hypertension; B96.1 Klebsiella pneumoniae [K. pneumoniae] as the cause of diseases classified elsewhere; C61 Malignant neoplasm of prostate; D63.8 Anemia in other chronic diseases classified elsewhere; H54.7 Unspecified visual loss; H90.5 Unspecified sensorineural hearing loss; M19.90 Unspecified osteoarthritis, unspecified site; R31.0 Gross hematuria; Z82.5 Family history of asthma and other chronic lower respiratory diseases; Z85.46 Personal history of malignant neoplasm of prostate; Z86.718 Personal history of other venous thrombosis and embolism; Z88.8 Allergy status to other drugs, medicaments and biological substances; Z93.3 Colostomy status; Z68.25 Body mass index [BMI] 25.0-25.9, adult
CPT/HCPCS: 36415; 80048; 80053; 81001; 82947; 85018; 85025; 85027; 86850; 86900; 86901; 86920; 87040; 87086; 87186; 87641; J0696; P9016; Q0162; Q0163; 97110; 97530; J7030